=== PATIENT | male | born 1980 | race Caucasian/White ===

== ENCOUNTER 2022-06-22 01:36 | Emergency (ER) | payer BC, OTHER ==
[2022-06-22] MEDS ORDERED: LORazepam 2 MG/ML SDV IVPUSH ONE ×2 (01:38→04:09)
[2022-06-22] MEDS ORDERED: Aspirin 81 MG Tab.Chew PO ONE (01:41)
[2022-06-22 02:17] LABS: BLOOD UREA NITROGEN,BUN 8 mg/dL (7.0-18.0); CARBON DIOXIDE,CO2 27.7 mmol/L (21.0-32.0); CHLORIDE,CL 95 mmol/L (98-107); GLUCOSE RANDOM 253 mg/dL (74-106); POTASSIUM,K 5.1 mmol/L (3.5-5.1); SODIUM,NA 131 mmol/L (136-148)
[2022-06-22 02:25] LABS: CORONAVIRUS COVID-19 NAA NEGATIVE (NEGATIVE); INFLUENZA A NAA NEGATIVE (NEGATIVE); INFLUENZA B NAA NEGATIVE (NEGATIVE)
[2022-06-22 02:33] LABS: ESTIMATED GFR 112 mL/min (>60)
[2022-06-22 05:05] VITALS: BP 121/82; PULSE 74
== END 2022-06-22 05:00 | disposition home or self-care (01) ==
LOC: MW.ED 01:36
DX: R07.89 Other chest pain (principal); R06.02 Shortness of breath; Z20.822 Contact with and (suspected) exposure to COVID-19
CPT/HCPCS: 0240U; 36415; 71045; 80053; 80307; 83735; 84443; 84484; 85025; 93005; 96374; 96376; 99285; A9270; J2060

== ENCOUNTER 2022-08-17 15:19 | Emergency (ER) | payer BC ==
[2022-08-17 15:58] VITALS: PULSE 114
[2022-08-17] MEDS ORDERED: Sodium Chloride 0.9% 1,000 ML IV ONE (15:59)
[2022-08-17] MEDS ORDERED: LORazepam 2 MG/ML SDV IVPUSH ONE (15:59)
[2022-08-17 17:10] LABS: ACETAMINOPHEN <2.0 ug/mL; BLOOD UREA NITROGEN,BUN 16 mg/dL (7.0-18.0); CARBON DIOXIDE,CO2 24.7 mmol/L (21.0-32.0); CHLORIDE,CL 95 mmol/L (98-107); GLUCOSE RANDOM 265 mg/dL (74-106); POTASSIUM,K 3.7 mmol/L (3.5-5.1); SODIUM,NA 134 mmol/L (136-148)
[2022-08-17 17:16] LABS: CORONAVIRUS COVID-19 NAA NEGATIVE (NEGATIVE); INFLUENZA A NAA NEGATIVE (NEGATIVE); INFLUENZA B NAA NEGATIVE (NEGATIVE)
[2022-08-17 17:17] LABS: ESTIMATED GFR 95 mL/min (>60)
== END 2022-08-17 19:11 | disposition home or self-care (01) ==
LOC: MW.ED 15:19
DX: R44.3 Hallucinations, unspecified (principal); F14.10 Cocaine abuse, uncomplicated; I10 Essential (primary) hypertension; E11.9 Type 2 diabetes mellitus without complications; Z79.899 Other long term (current) drug therapy; Z20.822 Contact with and (suspected) exposure to COVID-19
CPT/HCPCS: 0240U; 36415; 70450; 80053; 80143; 80179; 80305; 80307; 81001; 82140; 82947; 83735; 84443; 85025; 96361; 96374; 99285; J2060; J7030